=== PATIENT | male | born 1950 | race Caucasian/White ===

== ENCOUNTER 2018-03-17 08:30 | Day surgery (SDC) | payer MEDICARE ==
[2018-03-13 15:55] VITALS: BMI 26.2
[2018-03-17 09:12] LABS: Glucose,Whole Blood 140 mg/dL (75-99)
[2018-03-17 09:14] VITALS: TEMP 97.3
[2018-03-17] MEDS ORDERED: LACTATED RINGERS 1,000 ML IV ONE (09:18)
[2018-03-17] MEDS ORDERED: LIDOCAINE 1% 20 ML VIAL (10MG/ML) FOR IV START INTRADERMA ONE (09:18)
[2018-03-17] MEDS ORDERED: PROPOFOL 10 MG/ML 20 ML VIAL IV ONE (09:45)
--- NOTE | 2018-03-17 09:45 | P.GSHP ---
History of Present Illness H&P Date: 03/17/18 Chief Complaint: Dysphagia, left lower quadrant pain, constipation This a 67-year-old male referred from damaris Healy PA-C. Patient presents today for EGD colonoscopy. He's had some issues with dysphagia. He is also had complaints of left lower quadrant pain constipation. Past Medical History Past Medical History: CVA/TIA, Diabetes Mellitus, Hyperlipidemia, Hypertension Additional Past Medical History / Comment(s): POSSIBLE DIVERTICULOSIS. CVA X 2 2012 History of Any Multi-Drug Resistant Organisms: None Reported Past Surgical History: Heart Catheterization With Stent Additional Past Surgical History / Comment(s): STENTS TO BILAT ILIAC. COLONOSCOPY. HEMORRHOIDECTOMY. LT CAROTID ENDARTERECTOMY Past Anesthesia/Blood Transfusion Reactions: No Reported Reaction Date of Last Stent Placement:: 2007 Smoking Status: Current every day smoker - Past Family History Mother Family Medical History: No Reported History Medications and Allergies Home Medications Medication Instructions Recorded Confirmed Type Aspirin [Adult Low Dose Aspirin EC] 81 mg PO DAILY 03/13/18 03/17/18 History Atorvastatin [Lipitor] 40 mg PO DAILY 03/13/18 03/17/18 History Clopidogrel [Plavix] 75 mg PO DAILY 03/13/18 03/17/18 History Lisinopril [Zestril] 10 mg PO DAILY 03/13/18 03/17/18 History [place]-3 Fatty Acids/Fish Oil [Fish 1 each PO DAILY 03/13/18 03/17/18 History Oil 1,000 mg Softgel] metFORMIN HCL [Glucophage] 500 mg PO DAILY 03/13/18 03/17/18 History Allergies Allergy/AdvReac Type Severity Reaction Status Date / Time No Known Allergies Allergy Verified 03/17/18 09:03 Surgical - Exam Vital Signs Temp Pulse Resp BP Pulse Ox 97.3 F L 84 16 172/77 98 03/17/18 09:12 03/17/18 09:12 03/17/18 09:12 03/17/18 09:12 03/17/18 09:12 - General well developed, well nourished, no distress - Eyes PERRL - ENT normal pinna, normal nares - Neck no masses - Respiratory normal expansion - Cardiovascular Rhythm: regular - Abdomen Abdomen: soft, non tender Results - Labs Abnormal Lab Results - Last 24 Hours (Table) 09/10/18 Range/Units 09:09 POC Glucose (mg/dL) 140 H (75-99) mg/dL Assessment and Plan Plan: Dysphagia, we'll perform EGD. Left lower quadrant pain, constipation. We'll perform colonoscopy.
--- NOTE | 2018-03-17 10:10 | P.OP ---
Date of Procedure: 03/17/18 Preoperative Diagnosis: Dysphagia Left lower quadrant pain Constipation Postoperative Diagnosis: Duodenitis Gastritis No evidence of hiatal hernia Esophagitis Left colon polyp Procedure(s) Performed: EGD Colonoscopy Anesthesia: MAC Surgeon: Michael Meneses Pathology: other (Left colon polyp) Condition: stable Disposition: PACU Description of Procedure: The patient's placed on the endoscopy table in the lateral position. He received IV sedation. The gastric was placed oropharynx passed in the esophagus into the stomach. Scope was then placed through the pylorus. The first and second portion of duodenum appeared mildly inflamed. A biopsies performed. Scope summer back the antrum this was mildly inflamed. A biopsies performed. The scope was then retroflexed and the remainder of the stomach appeared normal. There was no significant hiatal hernia. The GE junction was at 40 cm. The distal esophagus. Normal. The proximal esophagus appeared normal. Scope was withdrawn for patient. Next digital rectal exam was performed which revealed no abnormalities. The flexible colonoscope was then placed patient anus and passed throughout the entire colon. The ileocecal valve was visualized. The cecum, ascending and transverse colon appeared normal. The in the descending, left colon there was a small polyp seen this removed all forcep. Scope was brought back the sigmoid colon this appeared normal. Scope was brought back into the rectum and this was normal. Scope was withdrawn for patient.
[2018-03-17 10:13] VITALS: RESP 18
[2018-03-17 10:29] VITALS: BP 143/81; PULSE 83
--- NOTE | 2018-03-20 08:03 | CDI ---
Date: 03/20/18 CDS/Enrichment Specialist Name: Ariana Patel Phone: If any questions, call Janene Malik Computer Scientist at [phone] Patient Name: Aubrey Koch Admit Date: 03/17/18 Discharge Date: 03/17/18 ATTENTION: [facility] Coding Staff appreciate your assistance in clarifying documentation. Please respond to the clarification below the line at the bottom and electronically sign. The [facility] Coding staff will review the response and follow-up if needed. Please note: Queries are made part of the Legal Health Record. If you have any questions, please contact the Computer Scientist. Dear Dr. Meneses, Please provide clarification as to the method used to remove the colon polyp. Please clarify it was cold or hot biopsy forceps. Thank you for your kind consideration. The cold forcep was used MTDD
== END 2018-03-17 10:58 | disposition home or self-care (01) ==
LOC: ORWHC2ENDO 08:30
PROVIDERS: ATTEND Surgery
DX: K29.50 Unspecified chronic gastritis without bleeding (principal); K29.80 Duodenitis without bleeding; K63.5 Polyp of colon; I10 Essential (primary) hypertension; E78.5 Hyperlipidemia, unspecified; E11.9 Type 2 diabetes mellitus without complications; Z86.73 Personal history of transient ischemic attack (TIA), and cerebral infarction without residual deficits; Z95.5 Presence of coronary angioplasty implant and graft; Z95.820 Peripheral vascular angioplasty status with implants and grafts; F17.200 Nicotine dependence, unspecified, uncomplicated; Z79.84 Long term (current) use of oral hypoglycemic drugs; Z79.02 Long term (current) use of antithrombotics/antiplatelets; Z79.82 Long term (current) use of aspirin; Z79.899 Other long term (current) drug therapy
CPT/HCPCS: 88305; 45380; 43239; J2704

== ENCOUNTER → 2019-08-07 | Outpatient (CLI) | payer MEDICARE, OTHER ==
--- NOTE | 2019-08-07 09:57 | CTL ---
EXAMINATION TYPE: CT Low Dose Lung DATE OF EXAM ORDERED: 08/07/2019 COMPARISON: None HISTORY: . Low Dose CT Lung Screening CT DLP: [address] CTDI: 1.84 mGy IV CONTRAST USED: None. SCREENING VISIT: First visit COMPARISON: None. TECHNIQUE: Low dose computed tomography scan was performed through the chest at 1 millimeter thick se ctions and reconstructed images in the coronal plane at [address] DIAGNOSTIC QUALITY: Satisfactory FINDINGS: LUNG NODULES: 1. Nodular density right upper lobe medially measuring 8 mm seen best on image 38 of 312. This could reflect an area of scarring however appropriate follow-up is advised. No additional nodules seen. LUNGS: COPD: Severity: None Fibrosis: Severity:None Lymph nodes: None Other findings: None RIGHT PLEURAL SPACE: Effusion: None Calcification: None Thickening: None Pneumothorax: None LEFT PLEURAL SPACE: Effusion: None Calcification: None Thickening: None Pneumothorax: None HEART: Heart Size: Mildly enlarged Coronary calcification: Mild Pericardial effusion: None OTHER FINDINGS: Upper abdomen: No significant abnormality Bony thorax: Degenerative changes Supraclavicular region: No significant abnormalityOther: No significant abnormalityI IMPRESSION: Probably benign FOLLOW UP CT CHEST RECOMMENDATION: Follow-up LD CT in [address] LUNG RAD: LUNG RAD CATEGORY 3 probably benign
== END | disposition home or self-care (01) ==
LOC: RADCTMAIN 08:56
PROVIDERS: ATTEND Family Medicine
DX: Z12.2 Encounter for screening for malignant neoplasm of respiratory organs (principal); F17.210 Nicotine dependence, cigarettes, uncomplicated

== ENCOUNTER → 2022-06-14 | Outpatient (CLI) | payer MEDICARE, OTHER ==
[2022-06-14 11:38] VITALS: BP 165/82; PULSE 78; RESP 18; TEMP 98.1
--- NOTE | 2022-06-14 14:44 | P.PAINPG ---
PQRS Measure Charge Sheet Comment: HISTORY OF PRESENT ILLNESS: 71 yr old male w daughter at side as a referral from Dr Jenkins presents today w severe and chronic LBP secondary to spinal stenosis, DDD and facet arthropathy without myelopathy for evaluation. Pt states pain level is at 9/10 in intensity, constant, localized in the tailbone, sharp, stabbing in character w shooting pain towards the BLEs, L>R. Pain is provoked by over activity. Pain is alleviated by injections (series of 3 within last 6 mos), PT was 2 yrs ago, home exercise regimen, heat, ice, medications (Tramadol), laying on his R side and rest. PMH: CVA/TIA x2 in 2012, Diabetes Mellitus, Hyperlipidemia, HTN PSH: EGD/ Colonoscopy (2017), Heart Catheterization With Stent to BL Iliac (2007), Hemorrhoidectomy, L Carotid Endarectomy SH: Daily tobacco use, No ETOH abuse, No illicit drug use. FH: Mo- No Reported History. All: NKDA Meds: See list REVIEW OF ORGAN SYSTEMS: CONSTITUTIONAL: No fevers or chills. No recent weight loss. NEUROLOGICAL: + numbness and tingling along the distal extremities. No seizure disorders or headaches. MUSCULOSKELETAL: + pain PSYCHIATRIC: Denies current depression or suicidal thoughts. Physical Examinations : Constitutional : Cooperative , not in acute distress . Neurologic : Cranial nerve II to XII intact. No focal neurological deficits. Psychiatric : alert & oriented x 3. Matching mood & appropriate affect. Judgment & insight intact. Musculoskeletal : Cervical Spine Motor strength in the deltoid and biceps: Normal right side. Normal Left side Motor strength biceps and the wrist extensors: Normal right side . Normal left side Motor strength in the triceps muscle: Normal right side. Normal left side Deep tendon reflexes: Normal at the biceps. Normal at Brachioradialis. Normal at triceps Vertebral body tenderness to deep palpation over Cervical facet loading test: positive bilaterally Spurling test: positive bilaterally Neck distraction test: positive bilaterally Marlyn sign: positive bilaterally Lumbar spine Motor strength lower extremities ,thigh and legs 5/5 Right side , 5/5 Left side Deep tendon reflexes : Normal Knee Jerk. Normal Ankle Jerk Vertebral body tenderness over Lumbar facet Loading Test: positive Right / positive Left TTP over BL L2-L3, L3-L4 facets Range of motion of the lumbar spine Flexion 30 degrees, extension 10 degrees Straight Leg Raise test: Left/ Right positive at degree Bernadine test: positive right / positive left. Severe tenderness over the Sacroiliac joint on the Right / Left sides Gaenslen test: positive bilaterally Seated flexion test: positive bilaterally. Sacral spine : Severe tenderness over the Sacroiliac joint: right side / left side Range of motion: Flexion of the lumbar spine <60 degrees Range of motion: Extension of the lumbar spine <20 degrees Gaenslen's Test positive Vaughn's Test positive Bernadine test: positive right side / left side Thigh Thrust Test Sacral Thrust Test Imaging: MRI without contrast of the lumbar spine 02/02/22 Assessment/ Plan : Lumbar stenosis, lumbar DDD Recommendation of BL facet block of the medial branches L2-L3, L3-L4 #1. May need a series, up until RFA, for optimal pain relief. Risks, benefits of procedure discussed and patient verbalized understanding. Admits to aspirin or anti- coagulant use or medical history of diabetes. Protocol for d iscontinuation/ continuation of medications felipa procedure discussed. All questions answered. I have spent greater than 30 minutes on patient care today. Dr Bailey was available by phone for the evaluation of this patient. The time was used to review the medical records including relevant urine studies and Prescription history (MAPs), review of the available imaging, evaluation and examination of the patient, coordination of care with the medical staff and if applicable referring physicians, as well as creation of the medical record PQRS Narrative: Smoking Status Current every day smoker Home Medications: Ambulatory Orders Aspirin [Adult Low Dose Aspirin EC] 81 mg PO DAILY 03/13/18 Atorvastatin [Lipitor] 40 mg PO DAILY 03/13/18 Clopidogrel [Plavix] 75 mg PO DAILY 03/13/18 [place]-3 Fatty Acids/Fish Oil [Fish Oil 1,000 mg Softgel] 1 each PO DAILY 03/13/18 lisinopriL [Zestril] 10 mg PO DAILY 03/13/18 metFORMIN HCL [Glucophage] 500 mg PO DAILY 03/13/18 Controlled Substance Measures - Controlled Substance Measures Is patient prescribed a controlled substance at discharge?: No
== END ==
LOC: PNWHC3 09:48
PROVIDERS: ATTEND Specialist
DX: M48.061 Spinal stenosis, lumbar region without neurogenic claudication (principal); M51.36 Other intervertebral disc degeneration, lumbar region; E11.9 Type 2 diabetes mellitus without complications; Z86.73 Personal history of transient ischemic attack (TIA), and cerebral infarction without residual deficits; E78.5 Hyperlipidemia, unspecified; I10 Essential (primary) hypertension; F17.200 Nicotine dependence, unspecified, uncomplicated; Z72.89 Other problems related to lifestyle; Z79.84 Long term (current) use of oral hypoglycemic drugs; Z79.82 Long term (current) use of aspirin
CPT/HCPCS: 99211